=== PATIENT | male | born 1975 | race Caucasian/White ===

== ENCOUNTER 2017-03-28 06:58 | Outpatient (CLI) | payer MEDICAID ==
[~2017-03-28 06:58] MED LIST: FERRIC CARBOXYMALTOSE 750 MG in NORMAL SALINE 250 ML IV PRN; NORMAL SALINE 250 ML IV PRN
[2017-03-28 09:16] VITALS: BP 138/66
== END 2017-03-28 10:00 | disposition home or self-care (01) ==
LOC: II 06:58 → 5TH 07:34 → II 10:00
PROVIDERS: ATTEND Internal Medicine
PROC: 3E033GC Introduction of Other Therapeutic Substance into Peripheral Vein, Percutaneous Approach (ICD-10-PCS; principal; 2017-03-28)
DX: D50.9 Iron deficiency anemia, unspecified (principal); K90.9 Intestinal malabsorption, unspecified
CPT/HCPCS: 96365; J7050; J1439

== ENCOUNTER 2017-04-04 08:36 | Outpatient (CLI) | payer MEDICAID ==
[2017-04-04 09:26] VITALS: BP 147/93
== END 2017-04-04 10:18 | disposition home or self-care (01) ==
LOC: II 08:36 → 5TH 08:42 → II 10:18
PROVIDERS: ATTEND Internal Medicine
PROC: 3E033GC Introduction of Other Therapeutic Substance into Peripheral Vein, Percutaneous Approach (ICD-10-PCS; principal; 2017-04-04)
DX: D50.9 Iron deficiency anemia, unspecified (principal); K90.9 Intestinal malabsorption, unspecified
CPT/HCPCS: 96365; J7050; J1439

== ENCOUNTER 2017-09-24 08:20 | Outpatient (CLI) | payer MEDICAID ==
[2017-09-24 08:42] VITALS: BP 153/81
[2017-09-24] MEDS ORDERED: NORMAL SALINE 250 ML IV PRN (08:51)
[2017-09-24] MEDS ORDERED: FERRIC CARBOXYMALTOSE 750 MG in NORMAL SALINE 250 ML IV PRN (08:51)
== END 2017-09-24 10:09 | disposition home or self-care (01) ==
LOC: II 08:20 → 5TH 08:23 → II 10:09
PROVIDERS: ATTEND Internal Medicine
PROC: 3E033GC Introduction of Other Therapeutic Substance into Peripheral Vein, Percutaneous Approach (ICD-10-PCS; principal; 2017-09-24)
DX: D50.9 Iron deficiency anemia, unspecified (principal); K90.9 Intestinal malabsorption, unspecified
CPT/HCPCS: 96365; J7050; J1439

== ENCOUNTER 2017-10-01 07:15 | Outpatient (CLI) | payer MEDICAID ==
[2017-10-01 08:01] VITALS: BP 149/88
== END 2017-10-01 09:24 | disposition home or self-care (01) ==
LOC: II 07:15 → 5TH 07:22 → II 09:24
PROVIDERS: ATTEND Internal Medicine
PROC: 3E033GC Introduction of Other Therapeutic Substance into Peripheral Vein, Percutaneous Approach (ICD-10-PCS; principal; 2017-10-01)
DX: D50.9 Iron deficiency anemia, unspecified (principal); K90.9 Intestinal malabsorption, unspecified
CPT/HCPCS: 96365; J7050; J1439

== ENCOUNTER 2019-04-22 12:54 | Emergency (ER) | payer MEDICAID ==
--- NOTE | 2019-04-22 13:35 | ER Document Report ---
ED Medical Screen (RME) - General Chief Complaint: Abnormal Lab Results Stated Complaint: ABNORMAL LABS Time Seen by Provider: 04/22/19 13:31 Mode of Arrival: Wheelchair Information source: Patient, Parent Notes: Patient presents with a complaint of difficulty breathing for the past several days. Patient states he had outpatient lab work done yesterday with a hemoglobin of 4 and was advised to come here. Patient appears jaundiced in triage. Patient does have a history of hypertension, hyperlipidemia, DVT, PE. Patient does take Xarelto I have greeted and performed a rapid initial assessment of this patient. A comprehensive ED assessment and evaluation of the patient, analysis of test results and completion of the medical decision making process will be conducted by additional ED providers. TRAVEL OUTSIDE OF THE [place] IN LAST 30 DAYS: No - Related Data Allergies/Adverse Reactions: No Known Allergies Allergy (Verified 04/22/19 12:57) Past Medical History - Social History Frequency of alcohol use: None Drug Abuse: None - Past Medical History Cardiac Medical History: Reports: Hx Hypercholesterolemia, Hx Hypertension Denies: Hx Coronary Artery Disease, Hx Heart Attack Pulmonary Medical History: Denies: Hx Asthma, Hx Bronchitis, Hx COPD, Hx Pneumonia Neurological Medical History: Denies: Hx Cerebrovascular Accident, Hx Seizures Renal/ Medical History: Denies: Hx Peritoneal Dialysis GI Medical History: Reports: Hx Ulcer Musculoskeltal Medical History: Denies Hx Arthritis Psychiatric Medical History: Denies: Hx Depression Past Surgical History: Reports: Hx Myringotomy - Immunizations Immunizations up to date: Yes Hx Diphtheria, Pertussis, Tetanus Vaccination: Yes Physical Exam - Vital signs Vitals: Temp Pulse Resp BP Pulse Ox 98.6 F 100 20 160/79 H 96 04/22/19 13:00 04/22/19 13:00 04/22/19 13:00 04/22/19 13:00 04/22/19 13:00 - General General appearance: Alert Notes: Respirations unlabored, patient not tachycardic. Patient appears jaundiced. Course - Vital Signs Vital signs: Temp Pulse Resp BP Pulse Ox 98.6 F 100 20 160/79 H 96 04/22/19 13:00 04/22/19 13:00 04/22/19 13:00 04/22/19 13:00 04/22/19 13:00
--- NOTE | 2019-04-22 14:25 | RADIOLOGY REPORT (SQ) ---
EXAM DESCRIPTION: CHEST 2 VIEWS COMPLETED DATE/TIME: 04/22/2019 2:06 pm REASON FOR STUDY: diff breathing COMPARISON: 06/05/2016. EXAM PARAMETERS: NUMBER OF VIEWS: two views TECHNIQUE: Digital Frontal and Lateral radiographic views of the chest acquired. RADIATION DOSE: NA LIMITATIONS: none FINDINGS: LUNGS AND PLEURA: No opacities, masses or pneumothorax. No pleural effusion. MEDIASTINUM AND HILAR STRUCTURES: No masses or contour abnormalities. HEART AND VASCULAR STRUCTURES: Heart upper limits of normal size. No evidence for failure. BONES: No acute findings. HARDWARE: None in the chest. OTHER: Hiatal hernia. No other significant finding. IMPRESSION: NO ACUTE RADIOGRAPHIC FINDING IN THE CHEST. MILD CARDIOMEGALY. HIATAL HERNIA. TECHNICAL DOCUMENTATION: JOB ID: [id number] [employer]- All Rights Reserved Reading location - IP/workstation name: [email or web address]
[2019-04-22 14:39] LABS: ABSOLUTE EOSINOPHILS # (AUTO) 0.1 10^3/uL (0.0-0.6); ABSOLUTE LYMPHOCYTES (AUTO) 1.1 10^3/uL (0.5-4.7); ABSOLUTE MONOCYTES (AUTO) 0.4 10^3/uL (0.1-1.4); EOSINOPHILS % (AUTO) 1.9 % (0-6); HEMATOCRIT 15.3 % (37.9-51.0); MEAN CORPUSCULAR HEMOGLOBIN 13.7 pg (27.0-33.4); MEAN CORPUSCULAR HGB CONC 26.9 g/dL (32.0-36.0); MEAN CORPUSCULAR VOLUME 51 fl (80-97); MONOCYTES % (AUTO) 10.1 % (3-13); PLATELET COUNT 378 10^3/uL (150-450); RED CELL DISTRIBUTION WIDTH 20.6 % (11.5-14.0); TOTAL CELLS COUNTED % (AUTO) 100 %; WHITE BLOOD COUNT 3.5 10^3/uL (4.0-10.5)
[2019-04-22 14:41] LABS: INTERNATIONAL RATION (INR) 2.08; PROTHROMBIN TIME 23.8 SEC (11.4-15.4)
[2019-04-22 14:42] LABS: PARTIAL THROMBOPLASTIN TIME 30.3 SEC (23.5-35.8)
[2019-04-22 14:54] LABS: HEMOGLOBIN 4.1 g/dL (13.5-17.0)
[2019-04-22 14:56] LABS: ALANINE AMINOTRANSFERASE 25 U/L (21-72); ALKALINE PHOSPHATASE 74 U/L (38-126); ANION GAP 11 (5-19); ASPARTATE AMINO TRANSFERASE 20 U/L (17-59); BILIRUBIN,DIRECT 0.1 mg/dL (0.0-0.4); BILIRUBIN,TOTAL 0.4 mg/dL (0.2-1.3); BLOOD UREA NITROGEN 14 mg/dL (7-20); CARBON DIOXIDE 23 mmol/L (22-30); CHLORIDE 105 mmol/L (98-107); GLUCOSE 102 mg/dL (75-110); LIPASE 93.1 U/L (23-300); POTASSIUM 4.2 mmol/L (3.6-5.0); TOTAL PROTEIN 7.2 g/dL (6.3-8.2)
[2019-04-22] MEDS ORDERED: FUROSEMIDE INJ/PF 20 MG/2 ML SDV IV PRN (15:05)
[2019-04-22] MEDS ORDERED: DIPHENHYDRAMINE HCL 25 MG CAPSULE PO PRN (15:05)
[2019-04-22] MEDS ORDERED: ACETAMINOPHEN 325 MG TABLET PO PRN (15:05)
[2019-04-22] MEDS ORDERED: NORMAL SALINE 250 ML IV PRN ×2 (15:05)
[2019-04-22 15:15] LABS: ANISOCYTOSIS 2+; HYPOCHROMASIA 3+; OVALOCYTES SLIGHT; POIKILOCYTOSIS SLIGHT; POLYCHROMASIA SLIGHT; TEAR DROP CELLS SLIGHT
[2019-04-22 15:16] LABS: PLATELET COMMENT ADEQUATE
--- NOTE | 2019-04-22 15:55 | ER Document Report ---
ED General - General Chief Complaint: Abnormal Lab Results Stated Complaint: ABNORMAL LABS Time Seen by Provider: 04/22/19 13:31 Primary Care Provider: ELIUD DAVID MD [Primary Care Provider] - Follow up as needed Mode of Arrival: Wheelchair Information source: Patient, Relative Cannot obtain history due to: Mentally challenged Notes: 43-year-old male with developmental delay, hypertension, hyperlipidemia, iron deficiency anemia, previous cardiac thrombus, previous DVT with IVC filter who is currently on Xarelto presents after his primary care physician called him with recent blood work results which reported a hemoglobin of 4. Patient states that he has been short of breath recently but denies any dizziness, lightheadedness, chest pain, abdominal pain, nausea, vomiting black or bloody stools. He does report a "bleeding ulcer" but cannot tell me where this ulcer was. Mother is at the bedside and provides the majority of the history. 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 TRAVEL OUTSIDE OF THE [place] IN LAST 30 DAYS: No - HPI Onset: Other Quality of pain: No pain Severity: None Pain Level: Denies Associated symptoms: Shortness of breath. denies: Chest pain, Leg swelling, Nausea, Vomiting Exacerbated by: Movement, Walking Relieved by: Remaining still Similar symptoms previously: Yes Recently seen / treated by doctor: Yes - Related Data Allergies/Adverse Reactions: No Known Allergies Allergy (Verified 04/22/19 12:57) Past Medical History - General Information source: Patient, Parent Cannot obtain history due to: Mentally challenged - Social History Smoking Status: Never Smoker Frequency of alcohol use: None Drug Abuse: None Lives with: Family Family History: Arthritis, CAD, CVA, DM, Hyperlipidemia, Hypertension, Malignancy, Thyroid Disfunction Patient has suicidal ideation: No Patient has homicidal ideation: No - Past Medical History Cardiac Medical History: Reports: Hx Hypercholesterolemia, Hx Hypertension Denies: Hx Coronary Artery Disease, Hx Heart Attack Pulmonary Medical History: Denies: Hx Asthma, Hx Bronchitis, Hx COPD, Hx Pneumonia Neurological Medical History: Denies: Hx Cerebrovascular Accident, Hx Seizures Renal/ Medical History: Denies: Hx Peritoneal Dialysis GI Medical History: Reports: Hx Ulcer Musculoskeletal Medical History: Denies Hx Arthritis Psychiatric Medical History: Denies: Hx Depression Past Surgical History: Reports: Hx Myringotomy - Immunizations Immunizations up to date: Yes Hx Diphtheria, Pertussis, Tetanus Vaccination: Yes Review of Systems - Review of Systems Notes: REVIEW OF SYSTEMS: CONSTITUTIONAL : Denies fever, chills, or sweats. Denies recent illness. Denies weight loss, recent hospitalizations. EENT: Denies visual changes, eye pain. Denies sore throat, oral lesions, difficulty swallowing. CARDIOVASCULAR: Denies chest pain. Denies palpitations. Denies lower extremity edema. RESPIRATORY: Denies cough. Denies wheezing. GASTROINTESTINAL: Denies abdominal pain or distention. Denies nausea, vomiting, or diarrhea. Denies blood in vomitus, stools, or per rectum. Denies black, tarry stools. Denies constipation. GENITOURINARY: Denies difficulty urinating, painful urination, frequency, blood in urine, testicular pain or penile discharge. MUSCULOSKELETAL: Denies back or neck pain or stiffness. Denies joint pain or swelling. SKIN: Denies rash, lesions or sores. HEMATOLOGIC : Denies easy bruising or bleeding. LYMPHATIC: Denies swollen glands. NEUROLOGICAL: Denies confusion or altered mental status. Denies loss of consciousness. Denies dizziness or lightheadedness. Denies headache. Denies weakness or paralysis. Denies problems difficulty with ambulation, slurred speech. Denies sensory loss, numbness, or tingling. Denies seizures. PSYCHIATRIC: Denies anxiety or stress. Denies depression, suicidal ideation, or Physical Exam - Vital signs Vitals: Temp Pulse Resp BP Pulse Ox 98.6 F 100 20 160/79 H 96 04/22/19 13:00 04/22/19 13:00 04/22/19 13:00 04/22/19 13:00 04/22/19 13:00 - Notes Notes: PHYSICAL EXAMINATION: GENERAL: Well-appearing, well-nourished and in no acute distress. HEAD: Atraumatic, normocephalic. EYES: Pupils equal round and reactive to light, extraocular movements intact, sclera anicteric, pale conjunctive ENT: Nares patent, oropharynx clear without exudates. Moist mucous membranes. NECK: Normal range of motion, supple without lymphadenopathy LUNGS: Breath sounds clear to auscultation bilaterally and equal. No wheezes rales or rhonchi. HEART: Regular rate and rhythm without murmurs ABDOMEN: Soft, nontender, nondistended abdomen. No guarding, no rebound. No masses appreciated. Musculoskeletal: Normal range of motion, no pitting or edema. No cyanosis. NEUROLOGICAL: Cranial nerves grossly intact. Normal speech, normal gait. Normal sensory, motor exams PSYCH: Normal mood, normal affect. SKIN: Pallor Course - Re-evaluation Re-evalutation: Laboratory 04/22/19 04/22/19 04/22/19 14:15 14:15 14:15 WBC 3.5 L RBC 3.00 L Hgb 4.1 L* Hct 15.3 L MCV 51 L MCH 13.7 L MCHC 26.9 L RDW 20.6 H Plt Count 378 Seg Neutrophils % 56.0 Lymphocytes % 31.0 Monocytes % 10.1 Eosinophils % 1.9 Basophils % 1.0 Absolute Neutrophils 2.0 Absolute Lymphocytes 1.1 Absolute Monocytes 0.4 Absolute Eosinophils 0.1 Absolute Basophils 0.0 Platelet Comment ADEQUATE Polychromasia SLIGHT Hypochromasia 3+ Poikilocytosis SLIGHT Anisocytosis 2+ Microcytosis 4+ Tear Drop Cells SLIGHT Ovalocytes SLIGHT PT 23.8 H INR 2.08 APTT 30.3 Sodium 139.0 Potassium 4.2 Chloride 105 Carbon Dioxide 23 Anion Gap 11 BUN 14 Creatinine 0.68 Est GFR ( Amer) > 60 Est GFR (Non-Af Amer) > 60 Glucose 102 Calcium 9.0 Total Bilirubin 0.4 Direct Bilirubin 0.1 Neonat Total Bilirubin Not Reportable Neonat Direct Bilirubin Not Reportable Neonat Indirect Bili Not Reportable AST 20 ALT 25 Alkaline Phosphatase 74 Troponin I Total Protein 7.2 Albumin 4.0 Lipase 93.1 POC Stool Occult Blood Blood Type Antibody Screen Crossmatch 04/22/19 04/22/19 04/22/19 14:15 14:15 14:57 WBC RBC Hgb Hct MCV MCH MCHC RDW Plt Count Seg Neutrophils % Lymphocytes % Monocytes % Eosinophils % Basophils % Absolute Neutrophils Absolute Lymphocytes Absolute Monocytes Absolute Eosinophils Absolute Basophils Platelet Comment Polychromasia Hypochromasia Poikilocytosis Anisocytosis Microcytosis Tear Drop Cells Ovalocytes PT INR APTT Sodium Potassium Chloride Carbon Dioxide Anion Gap BUN Creatinine Est GFR ( Amer) Est GFR (Non-Af Amer) Glucose Calcium Total Bilirubin Direct Bilirubin Neonat Total Bilirubin Neonat Direct Bilirubin Neonat Indirect Bili AST ALT Alkaline Phosphatase Troponin I < 0.012 Total Protein Albumin Lipase POC Stool Occult Blood POSITIVE Blood Type A POSITIVE Antibody Screen NEGATIVE Crossmatch See Detail Chest X-Ray 04/22/19 13:33 IMPRESSION: NO ACUTE RADIOGRAPHIC FINDING IN THE CHEST. MILD CARDIOMEGALY. HIATAL HERNIA. Temp Pulse Resp BP Pulse Ox 98.1 F 95 21 H 187/83 H 98 04/22/19 16:10 04/22/19 16:10 04/22/19 16:10 04/22/19 16:10 04/22/19 16:10 43-year-old male presented with a hemoglobin of 4.1. This was found after recent blood work by his new PCP. Patient reports history of iron deficiency anemia and previous multiple transfusions but states that he has not required a transfusion in many years. Vital signs reviewed and patient is mildly tachycardic initially with a heart rate of 100 but hypertensive and not hypoxic. Patient is pale but does not appear toxic or dehydrated. He otherwise has a normal physical exam except for dark stool that is Hemoccult positive. Patient is receiving 2 units of PRBCs, Protonix, and awaiting transfer to [facility] where the accepting physician is Dr. Tate. Patient will be going to the PCU. 04/22/19 15:54 Patient found to have a hemoglobin of 4.1 and occult positive stool. Patient is currently on Xarelto for cardiac stents. Mother initially requested transfer to [facility] as we do not have gastroenterology but I was informed that they have an almost 1 week waiting list. I am awaiting callback from the mother to see if I have her permission to try to transfer the patient to a another tertiary center. That has gastroenterology. 04/22/19 15:59 Blood transfusion started. Mother has given permission to transfer the patient to [place]. 04/22/19 16:02 [facility] has been contacted for transfer. They do also advised me that they have a long wait list. Patient accepted for transfer by Dr. Tate 04/22/19 17:21 Patient reevaluated upon transfer team arrival. Vital signs stable. Mother at the bedside. 04/22/19 19:07 - Vital Signs Vital signs: Temp Pulse Resp BP Pulse Ox 98.4 F 94 22 H 156/84 H 98 04/22/19 18:34 04/22/19 18:34 04/22/19 18:34 04/22/19 18:34 04/22/19 18:34 - Laboratory Result Diagrams: 04/22/19 14:15 04/22/19 14:15 Laboratory results interpreted by me: 04/22/19 04/22/19 04/22/19 14:15 14:15 14:15 WBC 3.5 L RBC 3.00 L Hgb 4.1 L* Hct 15.3 L MCV 51 L MCH 13.7 L MCHC 26.9 L RDW 20.6 H PT 23.8 H Crossmatch See Detail Critical Care Note - Critical Care Note Total time excluding time spent on procedures (mins): 45 - Minutes of critical care time spent in direct contact evaluating and reevaluating the patient, treating symptoms, reviewing labs and studies and speaking with family and consultants excluding any procedures Discharge - Discharge Clinical Impression: History of gastric ulcer, History of pulmonary embolism, S/P insertion of inferior vena caval filter, hist atrial thrombus, History of DVT (deep vein thrombosis) Anemia Qualifiers: Anemia type: iron deficiency Iron deficiency anemia type: other iron deficiency Qualified Code(s): D50.8 - Other iron deficiency anemias GI bleed Qualifiers: GI bleed type/associated pathology: unspecified gastrointestinal hemorrhage type Qualified Code(s): K92.2 - Gastrointestinal hemorrhage, unspecified Condition: Stable Disposition: [facility] Referrals: ELIUD DAVID MD [Primary Care Provider] - Follow up as needed
[2019-04-22] MEDS ORDERED: PANTOPRAZOLE SODIUM 40 MG VIAL IV ONE (16:17)
[2019-04-22] MEDS ORDERED: PANTOPRAZOLE SODIUM 40 MG VIAL IV PRN (16:18)
[2019-04-22 20:47] VITALS: BP 159/82
--- NOTE | 2019-04-22 22:04 | EKG REPORT ---
SEVERITY:- OTHERWISE NORMAL ECG - INCOMPLETE ANALYSIS DUE TO MISSING DATA IN PRECORDIAL LEAD(S) SINUS RHYTHM ATRIAL PREMATURE COMPLEX : Confirmed by: Rosalinda Iniguez 22-Apr-2019 22:03:26
[2019-04-23 11:42] LABS: PATH REVIEW PATHOLOGIST REVIEWED
--- NOTE | 2019-04-23 23:07 | EKG REPORT ---
SEVERITY:- NORMAL ECG - SINUS RHYTHM : Confirmed by: Rosalinda Iniguez 23-Apr-2019 23:06:58
== END 2019-04-22 19:30 | disposition short-term general hospital (02) ==
LOC: ER 12:54
DX: D50.9 Iron deficiency anemia, unspecified (principal); K92.2 Gastrointestinal hemorrhage, unspecified; I11.0 Hypertensive heart disease with heart failure; K44.9 Diaphragmatic hernia without obstruction or gangrene; R06.02 Shortness of breath; R00.0 Tachycardia, unspecified; Z86.718 Personal history of other venous thrombosis and embolism; Z86.711 Personal history of pulmonary embolism; Z95.828 Presence of other vascular implants and grafts; Z95.5 Presence of coronary angioplasty implant and graft; Z79.02 Long term (current) use of antithrombotics/antiplatelets; Z87.11 Personal history of peptic ulcer disease
CPT/HCPCS: 93005 ×2; 99291; 96374; 86900; 86901; 36415; 36430; 86850; 83690; 85025; 85610; 85730; 80053; 84484; 86920; 71046; 93010 ×2; P9016; S0164

== ENCOUNTER 2019-04-30 12:17 | Inpatient (IN) | payer MEDICAID ==
--- NOTE | 2019-04-30 12:48 | ER Document Report ---
ED Medical Screen (RME) - General Chief Complaint: Weakness Stated Complaint: DIFFICLTY BREATHING Time Seen by Provider: 04/30/19 12:42 Primary Care Provider: ELIUD DAVID MD [Primary Care Provider] - Follow up as needed Mode of Arrival: Wheelchair Information source: Patient Notes: 43-year-old male presented to ED for complaint of right flank pain for the past 2 days. He states that he came to the emergency room a week ago Saturday and he had a lower GI bleed he got 2 units of blood here and then went to [place] and got 3 more units and he had a upper and lower endoscopy done. He states they took him off of his blood thinners last week and he was supposed to restart them on the second but he has not restarted them yet. He does have a history of blood clots as well as GI bleed. He states he is feeling very tired and weak and needs to be evaluated. He states he went to the doctor on the second at [place] and they told him that he was supposed to start his blood thinner but he still has not. I have greeted and performed a rapid initial assessment of this patient. A comprehensive ED assessment and evaluation of the patient, analysis of test results and completion of medical decision making process will be conducted by an additional ED providers. Dictation of this chart was performed using voice recognition software; therefor e, there may be some unintended grammatical errors. TRAVEL OUTSIDE OF THE [place] IN LAST 30 DAYS: No - Related Data Allergies/Adverse Reactions: No Known Allergies Allergy (Verified 04/30/19 12:23) Past Medical History - Past Medical History Cardiac Medical History: Reports: Hx Hypercholesterolemia, Hx Hypertension Denies: Hx Coronary Artery Disease, Hx Heart Attack Pulmonary Medical History: Denies: Hx Asthma, Hx Bronchitis, Hx COPD, Hx Pneumonia Neurological Medical History: Denies: Hx Cerebrovascular Accident, Hx Seizures Renal/ Medical History: Denies: Hx Peritoneal Dialysis GI Medical History: Reports: Hx Ulcer Musculoskeltal Medical History: Denies Hx Arthritis Psychiatric Medical History: Denies: Hx Depression Past Surgical History: Reports: Hx Myringotomy - Immunizations Immunizations up to date: Yes Hx Diphtheria, Pertussis, Tetanus Vaccination: Yes Physical Exam - Vital signs Vitals: Temp Pulse Resp BP Pulse Ox 98.7 F 100 18 151/91 H 97 04/30/19 12:29 04/30/19 12:29 04/30/19 12:29 04/30/19 12:29 04/30/19 12:29 Course - Vital Signs Vital signs: Temp Pulse Resp BP Pulse Ox 98.7 F 100 18 151/91 H 97 04/30/19 12:29 04/30/19 12:29 04/30/19 12:29 04/30/19 12:29 04/30/19 12:29 Doctor's Discharge - Discharge Referrals: ELIUD DAVID MD [Primary Care Provider] - Follow up as needed
[2019-04-30 13:35] LABS: ABSOLUTE EOSINOPHILS # (AUTO) 0.1 10^3/uL (0.0-0.6); ABSOLUTE MONOCYTES (AUTO) 0.9 10^3/uL (0.1-1.4); ABSOLUTE NEUT (AUTO) 5.6 10^3/uL (1.7-8.2); BASOPHILS % (AUTO) 0.5 % (0-2); HEMATOCRIT 29.2 % (37.9-51.0); HEMOGLOBIN 8.8 g/dL (13.5-17.0); LYMPHOCYTES % (AUTO) 12.9 % (13-45); MEAN CORPUSCULAR HEMOGLOBIN 18.7 pg (27.0-33.4); MEAN CORPUSCULAR HGB CONC 30.1 g/dL (32.0-36.0); RED CELL DISTRIBUTION WIDTH 35.3 % (11.5-14.0); SEGMENTED NEUTROPHILS % (AUTO) 73.6 % (42-78); TOTAL CELLS COUNTED % (AUTO) 100 %; WHITE BLOOD COUNT 7.5 10^3/uL (4.0-10.5)
[2019-04-30 13:45] LABS: MEAN CORPUSCULAR VOLUME 62 fl (80-97)
[2019-04-30 13:47] LABS: INTERNATIONAL RATION (INR) 1.17
[2019-04-30 13:48] LABS: APPEARANCE,URINE SLIGHTLY-CLOUDY; BILIRUBIN,URINE NEGATIVE (NEGATIVE); COLOR,URINE AMBER; GLUCOSE, URINE NEGATIVE (NEGATIVE); KETONES,URINE NEGATIVE (NEGATIVE); LEUKOCYTE ESTERASE,URINE NEGATIVE (NEGATIVE); NITRITE,URINE NEGATIVE (NEGATIVE); PROTEIN,URINE 100 mg/dL (NEGATIVE); URINE SPECIFIC GRAVITY 1.032
--- NOTE | 2019-04-30 13:48 | RADIOLOGY REPORT (SQ) ---
EXAM DESCRIPTION: CHEST 2 VIEWS COMPLETED DATE/TIME: 04/30/2019 1:37 pm REASON FOR STUDY: right fflank pain pain with breathing COMPARISON: Two-view chest 04/22/2019 AP chest 06/05/2016 CT angio chest 03/15/2015 EXAM PARAMETERS: NUMBER OF VIEWS: two views TECHNIQUE: Digital Frontal and Lateral radiographic views of the chest acquired. RADIATION DOSE: NA LIMITATIONS: none FINDINGS: LUNGS AND PLEURA: Minimal bibasilar atelectasis. No pulmonary edema or pleural effusions. No pneumothorax MEDIASTINUM AND HILAR STRUCTURES: Large retrocardiac hiatal hernia containing nearly the entire stoma ch HEART AND VASCULAR STRUCTURES: Stable mild cardiomegaly BONES: No acute findings. HARDWARE: None in the chest. OTHER: No other significant finding. IMPRESSION: Minimal bibasilar atelectasis Large retrocardiac hiatal hernia containing nearly the entire stomach Stable cardiomegaly TECHNICAL DOCUMENTATION: JOB ID: [id number] [employer]- All Rights Reserved Reading location - IP/workstation name: [email or web address]
[2019-04-30 13:53] LABS: HYPOCHROMASIA 3+; POLYCHROMASIA SLIGHT
[2019-04-30 13:54] LABS: ANISOCYTOSIS 4+; OVALOCYTES SLIGHT; PLATELET CLUMPS PRESENT; POIKILOCYTOSIS 1+; SCHISTOCYTES SLIGHT; TEAR DROP CELLS 1+
[2019-04-30 13:56] LABS: PLATELET COMMENT ADEQUATE; PLATELET COUNT 333 10^3/uL (150-450)
[2019-04-30 14:00] LABS: ALANINE AMINOTRANSFERASE 21 U/L (21-72); ALBUMIN 4.1 g/dL (3.5-5.0); ALKALINE PHOSPHATASE 66 U/L (38-126); ANION GAP 10 (5-19); ASPARTATE AMINO TRANSFERASE 13 U/L (17-59); BILIRUBIN,DIRECT 0.1 mg/dL (0.0-0.4); BILIRUBIN,TOTAL 0.7 mg/dL (0.2-1.3); BLOOD UREA NITROGEN 13 mg/dL (7-20); CALCIUM 9.4 mg/dL (8.4-10.2); CARBON DIOXIDE 30 mmol/L (22-30); CHLORIDE 100 mmol/L (98-107); GLUCOSE 112 mg/dL (75-110); LIPASE 48.7 U/L (23-300); POTASSIUM 4.3 mmol/L (3.6-5.0); SODIUM 140.4 mmol/L (137-145); TOTAL PROTEIN 7.8 g/dL (6.3-8.2)
[2019-04-30] MEDS ORDERED: FENTANYL CITRATE INJ/PF 100 MCG/2 ML AMPUL IV ONE (14:55)
--- NOTE | 2019-04-30 14:55 | ER Document Report ---
ED General - General Chief Complaint: Weakness Stated Complaint: DIFFICLTY BREATHING Time Seen by Provider: 04/30/19 12:42 Mode of Arrival: Wheelchair Notes: Patient is a 43-year-old male who presents the emergency department with a chief complaint of shortness of breath and right upper abdominal pain. Pain is also i n his right lower chest. Patient has a significant past medical history of a DVT with an IVC filter, [place] with stent placement, GI bleed, and hyperlipidemia. On 25 April he was transferred to [facility] for a lower GI bleed and they cauterized a vein that was bleeding. At that time his hemoglobin was 4 and he received a total of 5 units of PRBCs. Patient does have shortness of breath and is tachycardic in the low 100s. He was seen by his primary care provider, who instructed him to restart his Xarelto on Saturday, but he did not. TRAVEL OUTSIDE OF THE [place] IN LAST 30 DAYS: No - Related Data Allergies/Adverse Reactions: No Known Allergies Allergy (Verified 04/30/19 12:23) Past Medical History - General Information source: Patient - Social History Smoking Status: Never Smoker Chew tobacco use (# tins/day): No Frequency of alcohol use: None Drug Abuse: None Family History: Arthritis, CAD, CVA, DM, Hyperlipidemia, Hypertension, Malignancy, Thyroid Disfunction Patient has suicidal ideation: No Patient has homicidal ideation: No - Past Medical History Cardiac Medical History: Reports: Hx Hypercholesterolemia, Hx Hypertension Denies: Hx Coronary Artery Disease, Hx Heart Attack Pulmonary Medical History: Denies: Hx Asthma, Hx Bronchitis, Hx COPD, Hx Pneumonia Neurological Medical History: Denies: Hx Cerebrovascular Accident, Hx Seizures Renal/ Medical History: Denies: Hx Peritoneal Dialysis GI Medical History: Reports: Hx Ulcer Musculoskeletal Medical History: Denies Hx Arthritis Psychiatric Medical History: Denies: Hx Depression Past Surgical History: Reports: Hx Myringotomy - Immunizations Immunizations up to date: Yes Hx Diphtheria, Pertussis, Tetanus Vaccination: Yes Review of Systems - Review of Systems Notes: REVIEW OF SYSTEMS: CONSTITUTIONAL : Denies recent illness. Denies recent unintentional weight loss. Denies fever, chills, or sweats. EENT: Denies eye, ear, throat, or mouth pain, discharge, or symptoms. Denies nasal or sinus congestion. CARDIOVASCULAR: Denies chest pain. RESPIRATORY: See HPI. GASTROINTESTINAL: See HPI GENITOURINARY: Denies difficulty urinating, burning, blood in urine, urgency or frequency. MUSCULOSKELETAL: Denies neck and back pain. Denies joint pain or swelling. SKIN: Denies rash, itchiness, or lesions HEMATOLOGIC : Denies easy bruising or bleeding. LYMPHATIC: Denies swollen, painful, enlarged glands. NEUROLOGICAL: Denies no numbness or tingling denies weakness. Denies headache. Denies altered mental status. Denies alteration in speech. PSYCHIATRIC: Denies stress, anxiety, alteration in sleep patterns, or depression. All other systems reviewed and negative. Physical Exam - Vital signs Vitals: Temp Pulse Resp BP Pulse Ox 98.7 F 100 18 151/91 H 97 04/30/19 12:29 04/30/19 12:29 04/30/19 12:29 04/30/19 12:29 04/30/19 12:29 - Notes Notes: PHYSICAL EXAMINATION: GENERAL: Appears obese, well-nourished, tachypneic. HEAD: Normocephalic, atraumatic. EYES: PERRL, conjunctiva normal, all extraocular movements intact, sclera nonicteric ENT: Moist mucous membranes. NECK: Supple, no noticeable swelling, redness, rash. Normal range of motion. LUNGS: Diminished right lower lobe. No wheezes rales or rhonchi. CARDIOVASCULAR: S1-S2, tachycardic, regular rhythm. Radial pulses 2+, normal. ABDOMEN: Normoactive bowel sounds. Soft, tender right upper abdomen, no guarding, no rebound tenderness, and no masses palpated. EXTREMITIES: Normal strength and range of motion, no pitting or edema. No cyanosis. NEUROLOGICAL: Moves all extremities upon command. Strength 5/5 in all extremities. PSYCH: Normal mood, normal affect. SKIN: Warm, dry. No rash, lesions, ulcerations noted. Normal skin turgor. Course - Re-evaluation Re-evalutation: 04/30/19 15:30 04/30/[address] of the chest shows there is no pulmonary emboli at this time. He does have a right pleural effusion, consistent with his pain that he is having. He is still tachycardic. We will ambulate the patient with continuous pulse ox. 04/30/19 18:14 Patient was walked around the unit and his heart rate was 127 while ambulating. 04/30/19 18:[address] Clark, at this time, hospitalist team is in transition to car shifter. Will attempt to call Dr. Calvert on car shifter. 04/30/19 21:[address] Calvert. Phone was busy. Will await callback. 04/30/19 21:[address] Calvert, the hospitalist and he would like an ABG drawn at this time. 04/30/19 22:06 Patient's PaO2 is 69.8. I attempted to call Dr. Calvert. Will await callback. 04/30/19 22:[address] Calvert and the patient will be admitted for observation. - Vital Signs Vital signs: Temp Pulse Resp BP Pulse Ox 100.5 F H 104 H 22 H 157/84 H 96 05/01/19 00:29 05/01/19 02:00 05/01/19 00:29 05/01/19 00:29 05/01/19 00:29 - Laboratory Result Diagrams: 04/30/19 13:13 04/30/19 13:13 Laboratory results interpreted by me: 04/30/19 04/30/19 04/30/19 13:13 13:13 13:13 Hgb 8.8 L Hct 29.2 L MCV 62 L D MCH 18.7 L MCHC 30.1 L RDW 35.3 H Lymphocytes % 12.9 L ABG pO2 ABG HCO3 Glucose 112 H Iron Ferritin AST 13 L Vitamin B12 Urine Protein 100 H Urine Urobilinogen 4.0 H 04/30/19 04/30/19 13:13 21:47 Hgb Hct MCV MCH MCHC RDW Lymphocytes % ABG pO2 69.8 L ABG HCO3 25.0 H Glucose Iron 11.9 L Ferritin 12.70 L AST Vitamin B12 229.0 L Urine Protein Urine Urobilinogen Discharge - Discharge Clinical Impression: Shortness of breath, Pleural effusion, Right upper quadrant abdominal pain Condition: Stable Disposition: ADMITTED OBSERVATION Admitting Provider: Enrike (Hospitalist) Unit Admitted: Telemetry
--- NOTE | 2019-04-30 15:42 | RADIOLOGY REPORT (SQ) ---
EXAM DESCRIPTION: U/S ABDOMEN LIMITED W/O DOP COMPLETED DATE/TIME: 04/30/2019 3:34 pm REASON FOR STUDY: RUQ abd pain COMPARISON: None. TECHNIQUE: Dynamic and static grayscale images acquired of the abdomen and recorded on PACS. Additio yves selected color Doppler and spectral images recorded. LIMITATIONS: None. FINDINGS: PANCREAS: Poorly seen. LIVER: No masses. Echotexture normal. LIVER VASCULATURE: Normal directional flow of the main portal vein and hepatic veins. GALLBLADDER: No stones. Normal wall thickness. No pericholecystic fluid. ULTRASOUND-DETECTED FLOOD'S SIGN: Negative. INTRAHEPATIC DUCTS AND COMMON DUCT: CBD and intrahepatic ducts normal caliber. No filling defects. INFERIOR VENA CAVA: Normal flow. AORTA: Poorly seen. RIGHT KIDNEY: Normal size, 12.2 cm. Normal echogenicity. No solid or suspicious masses. No hydroneph rosis. No calcifications. PERITONEAL AND RIGHT PLEURAL SPACE: No ascites or effusions. OTHER: No other significant findings. IMPRESSION: NORMAL RIGHT UPPER QUADRANT ULTRASOUND. TECHNICAL DOCUMENTATION: JOB ID: [id number] [employer]- All Rights Reserved Reading location - IP/workstation name: [email or web address]
--- NOTE | 2019-04-30 16:42 | RADIOLOGY REPORT (SQ) ---
EXAM DESCRIPTION: CTA CHEST COMPLETED DATE/TIME: 04/30/2019 4:28 pm REASON FOR STUDY: shortness of breath COMPARISON: None. TECHNIQUE: CT scan of the chest performed using helical scanning technique with dynamic intravenous contrast injection. Images reviewed with lung, soft tissue and bone windows. Reconstructed coronal and sagittal MPR images reviewed. Additional 3 dimensional post-processing performed to develop Maximal Intensity Projection images (IN P). All images stored on PACS. All CT scanners at this facility use dose modulation, iterative reconstruction, and/or weight based d osing when appropriate to reduce radiation dose to as low as reasonably achievable (ALARA). [facility]: Dose Right [facility]: CareDose [facility]: Dose Right [facility]: Teradose 4D [facility]: [employer] CONTRAST TYPE AND DOSE: Contrast type and dose not recorded here. Refer to pathology laboratory technologist's notes. Contrast bolus adequate for pulmonary arteries and aorta. RENAL FUNCTION: BUN 13 creatinine 0.67 RADIATION DOSE: CT Rad equipment meets quality standard of care and radiation dose reduction techniq ues were employed. CTDIvol: 50.1 - 73.8 mGy. DLP: 2053 mGy-cm. . LIMITATIONS: None. FINDINGS: LUNGS AND PLEURA: Small right pleural effusion. Ill-defined opacification in the right lo wer lobe. AORTA AND GREAT VESSELS: No aneurysm. Contrast bolus not optimized for the aorta. HEART: No pericardial effusion. No significant coronary artery calcifications. PULMONARY ARTERIES: No emboli visualized in the main pulmonary arteries or the segmental branches. HILAR AND MEDIASTINAL STRUCTURES: Hiatal hernia. No mediastinal or hilar mass. HARDWARE: None in the chest. UPPER ABDOMEN: No significant findings. Limited exam. THYROID AND OTHER SOFT TISSUES: No masses. No adenopathy. BONES: No acute or significant finding. 3D MIPS: Confirm above findings. OTHER: No other significant finding. IMPRESSION: There is no evidence of pulmonary embolus. There is no aortic aneurysm or dissection. Right pleural effusion. Cannot exclude right lower lobe pneumonia. Hiatal hernia. COMMENT: Quality ID # [id number]: Final reports with documentation of one or more dose reduction techniques (e.g., Automated exposure control, adjustment of the mA and/or kV according to patient size, use of iterative reconstruction technique) TECHNICAL DOCUMENTATION: JOB ID: [id number] [employer]- All Rights Reserved Reading location - IP/workstation name: [email or web address]
[2019-04-30] MEDS ORDERED: NORMAL SALINE 1000 ML 1,000 ML IV ONE (18:20)
[2019-04-30] MEDS ORDERED: LEVOFLOXACIN 750 MG/D5W RTU 750 MG/150 ML RTUPB IV ONE (18:36)
[2019-04-30 22:00] LABS: ARTERIAL BLOOD H2CO3 1.12 mmol/L (1.05-1.35); ARTERIAL BLOOD O2 SATURATION 94.8 % (94-98); ARTERIAL BLOOD PCO2 37.1 mmHg (35-45); ARTERIAL BLOOD PH 7.45 (7.35-7.45); ARTERIAL BLOOD PO2 69.8 mmHg (80-100); ARTERIAL BLOOD TOTAL CO2 26.1 mmol/L (23-27)
[2019-04-30 22:01] LABS: ARTERIAL BLOOD FIO2 ROOM AIR
[2019-04-30] MEDS ORDERED: HYDRALAZINE HCL INJ/PF 20 MG/1 ML SDV IV ONE (22:14)
[2019-04-30] MEDS ORDERED: IPRATROPIUM/ALBUTEROL 0.5-2.5 MG/3 ML AMPUL NEB PRN (22:16)
[2019-04-30] MEDS ORDERED: VANCOMYCIN HCL 0 MG in DEXTROSE 5%-WATER 250 ML IV NR (22:30)
[2019-04-30] MEDS ORDERED: VANCOMYCIN HCL INJ 1000 MG VIAL IV PRN (22:32)
[2019-04-30 22:52] LABS: ABSOLUTE RETICS # 0.102 10^6/uL (0.028-0.122); RETICULOCYTE COUNT (AUTO) 2.17 % (0.66-2.85)
[2019-04-30 22:53] LABS: IRON(TIBC) 11.9 ug/dL (49-181)
[2019-04-30] MEDS ORDERED: FLUTICASONE NASAL SPRAY 50 MCG/SPRY 120 SPRAY/16 GM NASL ONE (23:00)
[2019-04-30] MEDS ORDERED: VANCOMYCIN HCL 1,500 MG in DEXTROSE 5%-WATER 250 ML IV ONE (23:00)
[2019-04-30] MEDS ORDERED: OXYCODONE-ACETAMINOPHEN 5-325 MG TABLET PO ONE (23:38)
[2019-04-30] MEDS: CHLORPHENIRAMINE MALEATE 4 MG TABLET PO SCH (23:44)
[2019-04-30] MEDS: IPRATROPIUM/ALBUTEROL 0.5-2.5 MG/3 ML AMPUL NEB SCH (23:45)
[2019-05-01] MEDS: HYDRALAZINE HCL INJ/PF 20 MG/1 ML SDV IV PRN (03:54)
[2019-05-01] MEDS: ACETAMINOPHEN 325 MG TABLET PO PRN (03:56)
--- NOTE | 2019-05-01 04:18 | PDOC H&P ---
History of Present Illness Admission Date/PCP: 04/30/19 22:36 ELIUD DAVID MD Patient complains of: Shortness of breath History of Present Illness: LANCE PRIETO JR is a 43 year old male with a past medical history of developmental delay with speech impediment, both B12 and iron deficient anemia, followed by extensive lower extremity DVT and PE, on Xarelto, recent lower GI bleed status post embolization 10 days ago. Patient was discharged from [facility] for GI bleed and been doing well until 3 days ago developing shortness of breath nonproductive cough subjective fever prompting evaluation emergency room where he is found to have a right-sided infiltrate with small pleural effusion, hemoglobin of 8.8 from 7.5, 10 days ago. He denies nausea vomiting red or black discolored stool. He is started on empiric antibiotics and referred to the hospitalist for admission. Patient's mother, is at bedside who is able to provide details. Past Medical History Cardiac Medical History: Reports: Hyperlipidema, Hypertension, Pulmonary Embolism Denies: Coronary Artery Disease, Myocardial Infarction Pulmonary Medical History: Denies: Asthma, Bronchitis, Chronic Obstructive Pulmonary Disease (COPD), Pneumonia Neurological Medical History: Denies: Seizures Endocrine Medical History: Reports: Obesity GI Medical History: Reports: Other - Lower GI bleed Musculoskeltal Medical History: Denies: Arthritis Psychiatric Medical History: Denies: Alcohol Dependency, Depression, Tobacco Dependency Hematology: Reports: Anemia - CURRENTLY Social History Information Source: Patient, Parent, Emergency Med Personnel, [facility] Records Lives with: Parents Smoking Status: Never Smoker Frequency of Alcohol Use: Occasional Hx Recreational Drug Use: No Drugs: None Hx Prescription Drug Abuse: No - Advance Directive Resuscitation Status: Full Code Family History Family History: Arthritis, CAD, CVA, DM, Hyperlipidemia, Hypertension, Malignancy, Thyroid Disfunction Parental Family History Reviewed: Yes Children Family History Reviewed: Yes Sibling(s) Family History Reviewed.: Yes Medication/Allergy Home Medications: Omeprazole 40 mg PO DAILY 06/05/16 Cyanocobalamin (Vitamin B-12) [Vitamin B-12] 1,000 mcg SL DAILY #30 tab.subl 06/07/16 Ferrous Sulfate [Iron] 325 mg PO TID #90 capsule.sa 06/07/16 Allergies/Adverse Reactions: No Known Allergies Allergy (Verified 04/30/19 12:23) Review of Systems Constitutional: ABSENT: chills, fever(s), headache(s), weight gain, weight loss Eyes: ABSENT: visual disturbances Ears: ABSENT: hearing changes Cardiovascular: ABSENT: chest pain, dyspnea on exertion, edema, orthropnea, palpitations Respiratory: ABSENT: cough, hemoptysis Gastrointestinal: ABSENT: abdominal pain, constipation, diarrhea, hematemesis, hematochezia, nausea, vomiting Genitourinary: ABSENT: dysuria, hematuria Musculoskeletal: ABSENT: joint swelling Integumentary: ABSENT: rash, wounds Neurological: ABSENT: abnormal gait, abnormal speech, confusion, dizziness, focal weakness, syncope Psychiatric: ABSENT: anxiety, depression, homidical ideation, suicidal ideation Endocrine: ABSENT: cold intolerance, heat intolerance, polydipsia, polyuria Hematologic/Lymphatic: ABSENT: easy bleeding, easy bruising Physical Exam Vital Signs: Temp Pulse Resp BP Pulse Ox 99.3 F 98 22 H 162/83 H 96 05/01/19 03:46 05/01/19 03:46 05/01/19 03:46 05/01/19 03:46 05/01/19 03:46 Intake & Output 04/29/19 04/30/19 05/01/19 11:59 11:59 11:59 Intake Total 1400 Balance 1400 Weight 136.078 kg General appearance: PRESENT: cooperative, mild distress, obese, well-developed, well-nourished Head exam: PRESENT: atraumatic, normocephalic Eye exam: PRESENT: conjunctiva pink, EOMI, PERRLA. ABSENT: scleral icterus Ear exam: PRESENT: normal external ear exam Mouth exam: PRESENT: moist, tongue midline Neck exam: ABSENT: carotid bruit, JVD, lymphadenopathy, thyromegaly Respiratory exam: PRESENT: accessory muscle use, crackles, retraction, rhonchi, tachypnea. ABSENT: rales, wheezes Cardiovascular exam: PRESENT: RRR. ABSENT: diastolic murmur, rubs, systolic murmur Pulses: PRESENT: normal dorsalis pedis pul Vascular exam: PRESENT: normal capillary refill GI/Abdominal exam: PRESENT: normal bowel sounds, soft. ABSENT: distended, guarding, mass, organolmegaly, rebound, tenderness Rectal exam: PRESENT: deferred Extremities exam: PRESENT: full ROM. ABSENT: calf tenderness, clubbing, pedal edema Neurological exam: PRESENT: alert, awake, oriented to person, oriented to place, oriented to time, oriented to situation, CN II-XII grossly intact. ABSENT: motor sensory deficit Psychiatric exam: PRESENT: appropriate affect, normal mood. ABSENT: homicidal ideation, suicidal ideation Skin exam: PRESENT: dry, intact, warm. ABSENT: cyanosis, rash Results Laboratory Results: 04/30/19 13:13 04/30/19 13:13 04/30/19 04/30/19 04/30/19 13:13 13:13 13:13 WBC 7.5 RBC 4.70 Hgb 8.8 L Hct 29.2 L MCV 62 L D MCH 18.7 L MCHC 30.1 L RDW 35.3 H Plt Count 333 Seg Neutrophils % 73.6 Lymphocytes % 12.9 L Monocytes % 12.0 Eosinophils % 1.0 Basophils % 0.5 Absolute Neutrophils 5.6 Absolute Lymphocytes 1.0 Absolute Monocytes 0.9 Absolute Eosinophils 0.1 Absolute Basophils 0.0 Retic Count (auto) Absolute Retic Carbonic Acid HCO3/H2CO3 Ratio ABG pH ABG pCO2 ABG pO2 ABG HCO3 ABG O2 Saturation ABG Base Excess FiO2 Sodium 140.4 Potassium 4.3 Chloride 100 Carbon Dioxide 30 Anion Gap 10 BUN 13 Creatinine 0.67 Est GFR ( Amer) > 60 Est GFR (Non-Af Amer) > 60 Glucose 112 H Calcium 9.4 Iron TIBC % Saturation Ferritin Total Bilirubin 0.7 AST 13 L ALT 21 Alkaline Phosphatase 66 Total Protein 7.8 Albumin 4.1 Lipase 48.7 Vitamin B12 Folate Urine Color ELADIA Urine Appearance SLIGHTLY-CLOUDY Urine pH 6.0 Ur Specific Garrett 1.032 Urine Protein 100 H Urine Glucose (UA) NEGATIVE Urine Ketones NEGATIVE Urine Blood NEGATIVE Urine Nitrite NEGATIVE Ur Leukocyte Esterase NEGATIVE Urine WBC (Auto) 2 Urine RBC (Auto) 1 04/30/19 04/30/19 04/30/19 13:13 13:13 21:47 WBC RBC Hgb Hct MCV MCH MCHC RDW Plt Count Seg Neutrophils % Lymphocytes % Monocytes % Eosinophils % Basophils % Absolute Neutrophils Absolute Lymphocytes Absolute Monocytes Absolute Eosinophils Absolute Basophils Retic Count (auto) 2.17 Absolute Retic 0.102 Carbonic Acid 1.12 HCO3/H2CO3 Ratio 22:1 ABG pH 7.45 ABG pCO2 37.1 ABG pO2 69.8 L ABG HCO3 25.0 H ABG O2 Saturation 94.8 ABG Base Excess 1.0 FiO2 ROOM AIR Sodium Potassium Chloride Carbon Dioxide Anion Gap BUN Creatinine Est GFR ( Amer) Est GFR (Non-Af Amer) Glucose Calcium Iron 11.9 L TIBC 411 % Saturation 3 Ferritin 12.70 L Total Bilirubin AST ALT Alkaline Phosphatase Total Protein Albumin Lipase Vitamin B12 229.0 L Folate 11.70 Urine Color Urine Appearance Urine pH Ur Specific Garrett Urine Protein Urine Glucose (UA) Urine Ketones Urine Blood Urine Nitrite Ur Leukocyte Esterase Urine WBC (Auto) Urine RBC (Auto) Impressions: Chest X-Ray 04/30/19 12:48 IMPRESSION: Minimal bibasilar atelectasis Large retrocardiac hiatal hernia containing nearly the entire stomach Stable cardiomegaly Chest/Abdomen CTA 04/30/19 14:48 IMPRESSION: There is no evidence of pulmonary embolus. There is no aortic aneurysm or dissection. Right pleural effusion. Cannot exclude right lower lobe pneumonia. Hiatal hernia. Abdomen Ultrasound 04/30/19 14:49 IMPRESSION: NORMAL RIGHT UPPER QUADRANT ULTRASOUND. Assessment and Plan - Diagnosis (1) Pneumonia Is this a current diagnosis for this admission?: Yes Plan: Complicated by recent hospitalization, small pleural effusion, splinting, pneumonia care set deployed, incentive spirometry initiated, follow-up CBC and blood culture (2) History of pulmonary embolism Is this a current diagnosis for this admission?: Yes Plan: IVC filter in place, though patient was instructed to begin Xarelto 3 days ago. Will resume at 10 mg/day titration to 20 if no bleeding (3) Anemia Qualifiers: Anemia type: iron deficiency Iron deficiency anemia type: other iron deficiency Qualified Code(s): D50.8 - Other iron deficiency anemias Is this a current diagnosis for this admission?: Yes Plan: Status post GI hemorrhage, work-up reveals both iron and B12 deficiency. Both ordered. Follow-up CBC - Time Time Spent with patient: 25-34 minutes - Inpatient Certification Medical Necessity: Need Close Monitoring Due to Risk of Patient Decompensation
[2019-05-01] MEDS ORDERED: IRON SUCROSE COMPLEX INJ/PF 100 MG/5 ML SDV IV ONE (04:30)
[2019-05-01 05:44] LABS: ABSOLUTE LYMPHOCYTES (AUTO) 1.1 10^3/uL (0.5-4.7); ABSOLUTE MONOCYTES (AUTO) 1.2 10^3/uL (0.1-1.4); ABSOLUTE NEUT (AUTO) 5.5 10^3/uL (1.7-8.2); BASOPHILS % (AUTO) 0.4 % (0-2); EOSINOPHILS % (AUTO) 0.1 % (0-6); HEMATOCRIT 25.9 % (37.9-51.0); HEMOGLOBIN 8.1 g/dL (13.5-17.0); LYMPHOCYTES % (AUTO) 14.4 % (13-45); MEAN CORPUSCULAR HEMOGLOBIN 19.2 pg (27.0-33.4); MEAN CORPUSCULAR HGB CONC 31.1 g/dL (32.0-36.0); MEAN CORPUSCULAR VOLUME 62 fl (80-97); PLATELET COUNT 308 10^3/uL (150-450); RED BLOOD COUNT 4.21 10^6/uL (4.35-5.55); RED CELL DISTRIBUTION WIDTH 35.8 % (11.5-14.0); SEGMENTED NEUTROPHILS % (AUTO) 70.1 % (42-78); TOTAL CELLS COUNTED % (AUTO) 100 %; WHITE BLOOD COUNT 7.9 10^3/uL (4.0-10.5)
[2019-05-01] MEDS ORDERED: CHLORPHENIRAMINE MALEATE 4 MG TABLET ONE (05:53)
[2019-05-01 05:54] LABS: ANION GAP 13 (5-19); BLOOD UREA NITROGEN 13 mg/dL (7-20); CALCIUM 9.1 mg/dL (8.4-10.2); CARBON DIOXIDE 25 mmol/L (22-30); CHLORIDE 101 mmol/L (98-107); GLUCOSE 109 mg/dL (75-110); POTASSIUM 4.2 mmol/L (3.6-5.0); SODIUM 138.8 mmol/L (137-145)
[2019-05-01] MEDS ORDERED: HEPARIN SOD (PORCINE) 5,000 UNIT/ML 1 ML SYRINGE SUBCUT SCH (06:00)
[2019-05-01] MEDS: CHLORPHENIRAMINE MALEATE 4 MG TABLET PO SCH ×3 (06:00→18:19)
[2019-05-01 07:04] LABS: ANISOCYTOSIS 4+; HYPOCHROMASIA 2+; PLATELET COMMENT ADEQUATE
[2019-05-01] MEDS: IPRATROPIUM/ALBUTEROL 0.5-2.5 MG/3 ML AMPUL NEB SCH ×2 (08:00→16:37)
[2019-05-01] MEDS: FLUTICASONE NASAL SPRAY 50 MCG/SPRY 120 SPRAY/16 GM NASL SCH ×2 (10:57→21:30)
[2019-05-01] MEDS: CYANOCOBALAMIN (VITAMIN B-12) INJ 1000 MCG/1 ML VIAL IM SCH (10:57)
[2019-05-01] MEDS: VANCOMYCIN HCL 1,500 MG in DEXTROSE 5%-WATER 250 ML IV SCH ×3 (10:58→21:30)
--- NOTE | 2019-05-01 14:26 | PDOC PROGRESS REPORT ---
Subjective Progress Note for:: 05/01/19 Subjective:: This is a 43 year old male with a past medical history of developmental delay with speech impediment, B12 and iron deficiency anemia, followed by extensive lower extremity DVT and PE, on Xarelto, recent lower GI bleed status post embolization 10 days ago was brought in due to shortness of breath, fever and cough. CTA of the chest was negative for PE but did show a small right pleural effusion and possible pneumonia. He is admitted for H CAP. No acute event overnight. This morning, he appears comfortable on nasal cannula. He says that his shortness of breath has slightly improved. Denies chest pain. No hematemesis, abdominal pain, melena or hematochezia. Reason For Visit: ANEMIA PNEUMONIA Physical Exam Vital Signs: Temp Pulse Resp BP Pulse Ox 99.3 F 98 16 162/85 H 94 05/01/19 11:45 05/01/19 11:45 05/01/19 11:45 05/01/19 11:45 05/01/19 11:45 Intake & Output 04/30/19 05/01/19 05/02/19 06:59 06:59 06:59 Intake Total 1400 250 Balance 1400 250 Weight 296 lb 8.348 oz General appearance: PRESENT: no acute distress, well-developed, well-nourished Head exam: PRESENT: atraumatic, normocephalic Eye exam: PRESENT: conjunctiva pink, EOMI, PERRLA. ABSENT: scleral icterus Ear exam: PRESENT: normal external ear exam Mouth exam: PRESENT: moist, tongue midline Neck exam: ABSENT: carotid bruit, JVD, lymphadenopathy, thyromegaly Respiratory exam: PRESENT: clear to auscultation tracy. ABSENT: rales, rhonchi, wheezes Cardiovascular exam: PRESENT: RRR. ABSENT: diastolic murmur, rubs, systolic murmur Pulses: PRESENT: normal dorsalis pedis pul GI/Abdominal exam: PRESENT: normal bowel sounds, soft. ABSENT: distended, guarding, mass, organolmegaly, rebound, tenderness Rectal exam: PRESENT: deferred Neurological exam: PRESENT: alert, awake, oriented to person, oriented to place, CN II-XII grossly intact. ABSENT: motor sensory deficit Results Laboratory Results: 05/01/19 04:46 05/01/19 04:46 04/30/19 04/30/19 04/30/19 13:13 13:13 21:47 WBC RBC Hgb Hct MCV MCH MCHC RDW Plt Count Seg Neutrophils % Lymphocytes % Monocytes % Eosinophils % Basophils % Absolute Neutrophils Absolute Lymphocytes Absolute Monocytes Absolute Eosinophils Absolute Basophils Retic Count (auto) 2.17 Absolute Retic 0.102 Carbonic Acid 1.12 HCO3/H2CO3 Ratio 22:1 ABG pH 7.45 ABG pCO2 37.1 ABG pO2 69.8 L ABG HCO3 25.0 H ABG O2 Saturation 94.8 ABG Base Excess 1.0 FiO2 ROOM AIR Sodium Potassium Chloride Carbon Dioxide Anion Gap BUN Creatinine Est GFR ( Amer) Est GFR (Non-Af Amer) Glucose Calcium Iron 11.9 L TIBC 411 % Saturation 3 Ferritin 12.70 L Vitamin B12 229.0 L Folate 11.70 05/01/19 05/01/19 04:46 04:46 WBC 7.9 RBC 4.21 L Hgb 8.1 L Hct 25.9 L MCV 62 L MCH 19.2 L MCHC 31.1 L RDW 35.8 H Plt Count 308 Seg Neutrophils % 70.1 Lymphocytes % 14.4 Monocytes % 15.0 H Eosinophils % 0.1 Basophils % 0.4 Absolute Neutrophils 5.5 Absolute Lymphocytes 1.1 Absolute Monocytes 1.2 Absolute Eosinophils 0.0 Absolute Basophils 0.0 Retic Count (auto) Absolute Retic Carbonic Acid HCO3/H2CO3 Ratio ABG pH ABG pCO2 ABG pO2 ABG HCO3 ABG O2 Saturation ABG Base Excess FiO2 Sodium 138.8 Potassium 4.2 Chloride 101 Carbon Dioxide 25 Anion Gap 13 BUN 13 Creatinine 0.64 Est GFR ( Amer) > 60 Est GFR (Non-Af Amer) > 60 Glucose 109 Calcium 9.1 Iron TIBC % Saturation Ferritin Vitamin B12 Folate Impressions: Chest X-Ray 04/30/19 12:48 IMPRESSION: Minimal bibasilar atelectasis Large retrocardiac hiatal hernia containing nearly the entire stomach Stable cardiomegaly Chest/Abdomen CTA 04/30/19 14:48 IMPRESSION: There is no evidence of pulmonary embolus. There is no aortic aneurysm or dissection. Right pleural effusion. Cannot exclude right lower lobe pneumonia. Hiatal hernia. Abdomen Ultrasound 04/30/19 14:49 IMPRESSION: NORMAL RIGHT UPPER QUADRANT ULTRASOUND. Assessment and Plan - Diagnosis (1) HCAP (healthcare-associated pneumonia) Is this a current diagnosis for this admission?: Yes Plan: Continue IV antibiotics. Will order for sputum culture. Breathing treatments as needed. (2) Anemia Qualifiers: Anemia type: iron deficiency Iron deficiency anemia type: other iron deficiency Qualified Code(s): D50.8 - Other iron deficiency anemias Is this a current diagnosis for this admission?: Yes Plan: Secondary to iron, B12 deficiency and recent GI bleed. He had a recent small intestinal bleed resolved with embolization at [facility] 10 days ago. Hemoglobin is stable. No clinical signs of bleeding. (3) History of DVT (deep vein thrombosis) Is this a current diagnosis for this admission?: Yes Plan: On Xarelto. (4) History of pulmonary embolism Is this a current diagnosis for this admission?: Yes Plan: S/P IVC filter. On Xarelto. - Time Time Spent with patient: 25-34 minutes
[2019-05-01] MEDS: RIVAROXABAN 10 MG TABLET PO SCH (17:05)
[2019-05-01] MEDS: LEVOFLOXACIN 750 MG/D5W RTU 750 MG/150 ML RTUPB IV SCH (18:19)
[2019-05-01 22:06] LABS: VANCOMYCIN,TROUGH 6.6 ug/mL (5.0-20.0)
[2019-05-02] MEDS: IPRATROPIUM/ALBUTEROL 0.5-2.5 MG/3 ML AMPUL NEB SCH ×4 (00:05→23:48)
[2019-05-02] MEDS: VANCOMYCIN HCL 1,500 MG in DEXTROSE 5%-WATER 250 ML IV SCH (05:49)
[2019-05-02] MEDS: FLUTICASONE NASAL SPRAY 50 MCG/SPRY 120 SPRAY/16 GM NASL SCH ×2 (10:01→21:29)
[2019-05-02] MEDS: CYANOCOBALAMIN (VITAMIN B-12) INJ 1000 MCG/1 ML VIAL IM SCH (10:02)
--- NOTE | 2019-05-02 11:39 | PDOC PROGRESS REPORT ---
Subjective Progress Note for:: 05/02/19 Subjective:: This is a 43 year old male with a past medical history of developmental delay with speech impediment, B12 and iron deficiency anemia, followed by extensive lower extremity DVT and PE, on Xarelto, recent lower GI bleed status post embolization 10 days ago was brought in due to shortness of breath, fever and cough. CTA of the chest was negative for PE but did show a small right pleural effusion and possible pneumonia. He is admitted for H CAP. This morning, he appears comfortable on nasal cannula. He says that his shortness of breath has slightly improved. Denies chest pain. No hematemesis, abdominal pain, melena or hematochezia. 05/02: No acute event overnight. He saturating well on nasal cannula. He says he feels much better today any shortness of breath is significantly improved. We will try to wean off O2 today. Sputum culture pending. Anticipating discharge in the next 24 hours. Reason For Visit: ANEMIA PNEUMONIA Physical Exam Vital Signs: Temp Pulse Resp BP Pulse Ox 98.9 F 101 H 18 153/86 H 93 05/02/19 07:47 05/02/19 09:10 05/02/19 09:10 05/02/19 07:47 05/02/19 09:10 Intake & Output 05/01/19 05/02/19 05/03/19 06:59 06:59 06:59 Intake Total 1400 1500 250 Output Total 500 Balance 1400 1000 250 Weight 296 lb 8.348 oz 295 lb 13.765 oz General appearance: PRESENT: no acute distress, well-developed, well-nourished Head exam: PRESENT: atraumatic, normocephalic Eye exam: PRESENT: conjunctiva pink, EOMI, PERRLA. ABSENT: scleral icterus Ear exam: PRESENT: normal external ear exam Mouth exam: PRESENT: moist, tongue midline Neck exam: ABSENT: carotid bruit, JVD, lymphadenopathy, thyromegaly Respiratory exam: PRESENT: rhonchi. ABSENT: wheezes Cardiovascular exam: PRESENT: RRR. ABSENT: diastolic murmur, rubs, systolic murmur Pulses: PRESENT: normal dorsalis pedis pul GI/Abdominal exam: PRESENT: normal bowel sounds, soft. ABSENT: distended, guar ding, mass, organolmegaly, rebound, tenderness Rectal exam: PRESENT: deferred Extremities exam: PRESENT: full ROM. ABSENT: calf tenderness, clubbing, pedal edema Neurological exam: PRESENT: alert, awake, oriented to person, oriented to place, oriented to time, oriented to situation, CN II-XII grossly intact. ABSENT: motor sensory deficit Results Laboratory Results: 05/01/19 04:46 05/01/19 21:27 05/01/19 21:27 Creatinine 0.71 Est GFR ( Amer) > 60 Est GFR (Non-Af Amer) > 60 Impressions: Chest X-Ray 04/30/19 12:48 IMPRESSION: Minimal bibasilar atelectasis Large retrocardiac hiatal hernia containing nearly the entire stomach Stable cardiomegaly Chest/Abdomen CTA 04/30/19 14:48 IMPRESSION: There is no evidence of pulmonary embolus. There is no aortic aneurysm or dissection. Right pleural effusion. Cannot exclude right lower lobe pneumonia. Hiatal hernia. Abdomen Ultrasound 04/30/19 14:49 IMPRESSION: NORMAL RIGHT UPPER QUADRANT ULTRASOUND. Assessment and Plan - Diagnosis (1) HCAP (healthcare-associated pneumonia) Is this a current diagnosis for this admission?: Yes Plan: Continue IV antibiotics. Sputum culture pending. Breathing treatments as needed. (2) Anemia Qualifiers: Anemia type: iron deficiency Iron deficiency anemia type: other iron deficiency Qualified Code(s): D50.8 - Other iron deficiency anemias Is this a current diagnosis for this admission?: Yes Plan: Secondary to iron, B12 deficiency and recent GI bleed. He had a recent small intestinal bleed resolved with embolization at [facility] 10 days ago. Hemoglobin is stable. No clinical signs of bleeding. (3) History of DVT (deep vein thrombosis) Is this a current diagnosis for this admission?: Yes Plan: On Xarelto. (4) History of pulmonary embolism Is this a current diagnosis for this admission?: Yes Plan: S/P IVC filter. On Xarelto. - Time Time Spent with patient: 25-34 minutes
[2019-05-02] MEDS: HYDRALAZINE HCL INJ/PF 20 MG/1 ML SDV IV PRN (12:49)
[2019-05-02] MEDS: VANCOMYCIN HCL 2,000 MG in DEXTROSE 5%-WATER 500 ML IV SCH ×2 (14:03→21:30)
[2019-05-02] MEDS: RIVAROXABAN 10 MG TABLET PO SCH (16:24)
[2019-05-02] MEDS: ACETAMINOPHEN 325 MG TABLET PO PRN (16:24)
[2019-05-02] MEDS: LEVOFLOXACIN 750 MG/D5W RTU 750 MG/150 ML RTUPB IV SCH (17:30)
[2019-05-03] MEDS: VANCOMYCIN HCL 2,000 MG in DEXTROSE 5%-WATER 500 ML IV SCH (06:35)
[2019-05-03] MEDS: IPRATROPIUM/ALBUTEROL 0.5-2.5 MG/3 ML AMPUL NEB SCH (07:38)
[2019-05-03 08:27] VITALS: BP 159/85
[2019-05-03] MEDS: FLUTICASONE NASAL SPRAY 50 MCG/SPRY 120 SPRAY/16 GM NASL SCH (09:19)
[2019-05-03] MEDS: CYANOCOBALAMIN (VITAMIN B-12) INJ 1000 MCG/1 ML VIAL IM SCH (09:19)
--- NOTE | 2019-05-03 09:55 | RADIOLOGY REPORT (SQ) ---
EXAM DESCRIPTION: CHEST SINGLE VIEW COMPLETED DATE/TIME: 05/03/2019 9:36 am REASON FOR STUDY: pna COMPARISON: CT angio chest 04/30/2019 Two-view chest 04/30/2019, 04/22/2019 EXAM PARAMETERS: NUMBER OF VIEWS: One view. TECHNIQUE: Single frontal radiographic view of the chest acquired. RADIATION DOSE: NA LIMITATIONS: None. FINDINGS: LUNGS AND PLEURA: Trace right pleural fluid blunts the lateral costophrenic sulcus. There is minimal right and left basilar airspace disease atelectasis versus pneumonia. No pneumothorax. MEDIASTINUM AND HILAR STRUCTURES: No masses. Contour normal. HEART AND VASCULAR STRUCTURES: Stable cardiomegaly BONES: No acute findings. HARDWARE: None in the chest. OTHER: No other significant finding. IMPRESSION: No change compared to plain films 04/30/2019 TECHNICAL DOCUMENTATION: JOB ID: [id number] [employer]- All Rights Reserved Reading location - IP/workstation name: [email or web address]
--- NOTE | 2019-05-03 18:10 | PDOC DISCHARGE SUMMARY ---
General - Admit/Disc Date/PCP Admission Date/Primary Care Provider: 04/30/19 22:36 ELIUD DAVID MD Discharge Date: 05/03/19 - Discharge Diagnosis (1) HCAP (healthcare-associated pneumonia) Is this a current diagnosis for this admission?: Yes (2) Anemia Is this a current diagnosis for this admission?: Yes (3) History of DVT (deep vein thrombosis) Is this a current diagnosis for this admission?: Yes (4) History of pulmonary embolism Is this a current diagnosis for this admission?: Yes - Additional Information Resuscitation Status: Full Code Discharge Diet: Cardiac Discharge Activity: Activity As Tolerated, Balance Activity w/Rest Prescriptions: Furosemide [Lasix 20 mg Tablet] 20 mg PO QAM 5 Days #5 tablet Levofloxacin [Levaquin 750 mg Tablet] 750 mg PO DAILY 5 Days #5 tablet Home Medications: Omeprazole 40 mg PO QAM 05/01/19 Rivaroxaban [Xarelto] 20 mg PO QPM 05/01/19 Furosemide [Lasix 20 mg Tablet] 20 mg PO QAM 5 Days #5 tablet 05/03/19 Levofloxacin [Levaquin 750 mg Tablet] 750 mg PO DAILY 5 Days #5 tablet 05/03/19 History of Present Illness History of Present Illness: Admitting hospitalist's H&P: LANCE PRIETO JR is a 43 year old male with a past medical history of de velopmental delay with speech impediment, both B12 and iron deficient anemia, followed by extensive lower extremity DVT and PE, S/P IVC filter placement, on Xarelto, recent lower GI bleed status post embolization 10 days ago. Patient was discharged from [facility] for GI bleed and been doing well until 3 days ago developing shortness of breath nonproductive cough subjective fever prompting evaluation emergency room where he is found to have a right-sided infiltrate with small pleural effusion, hemoglobin of 8.8 from 7.5, 10 days ago. Hospital Course Hospital Course: This is a 43 year old male with a past medical history of developmental delay with speech impediment, B12 and iron deficiency anemia, followed by extensive lower extremity DVT and PE, S/P IVC filter placement, on Xarelto, recent lower GI bleed status post embolization 10 days ago was brought in due to shortness of breath, fever and cough. CTA of the chest was negative for PE but did show a small right pleural effusion and possible right sided pneumonia. He was admitted for HCAP. He was started on IV antibiotics. He was initially on 2 L nasal cannula. He did significantly improve. He was eventually weaned off O2. He ambulated on the hallway on room air without any issue or desaturation. He will be discharged on p.o. levofloxacin and will closely follow-up with PCP. Physical Exam Vital Signs: Temp Pulse Resp BP Pulse Ox 98.5 F 98 18 159/85 H 94 05/03/19 11:42 05/03/19 11:42 05/03/19 11:42 05/03/19 07:13 05/03/19 11:42 Intake & Output 05/02/19 05/03/19 05/04/19 06:59 06:59 06:59 Intake Total 1500 2331 500 Output Total 500 400 Balance 1000 1931 500 Weight 295 lb 13.765 oz 296 lb 1.293 oz General appearance: PRESENT: no acute distress, well-developed, well-nourished Head exam: PRESENT: atraumatic, normocephalic Eye exam: PRESENT: conjunctiva pink, EOMI, PERRLA. ABSENT: scleral icterus Ear exam: PRESENT: normal external ear exam Mouth exam: PRESENT: moist, tongue midline Neck exam: ABSENT: carotid bruit, JVD, lymphadenopathy, thyromegaly Respiratory exam: PRESENT: rhonchi. ABSENT: rales, wheezes Cardiovascular exam: PRESENT: RRR. ABSENT: diastolic murmur, rubs, systolic murmur Pulses: PRESENT: normal dorsalis pedis pul GI/Abdominal exam: PRESENT: normal bowel sounds, soft. ABSENT: distended, guarding, mass, organolmegaly, rebound, tenderness Rectal exam: PRESENT: deferred Extremities exam: PRESENT: full ROM. ABSENT: calf tenderness, clubbing, pedal edema Neurological exam: PRESENT: alert, awake, oriented to person, oriented to place, oriented to time, oriented to situation, CN II-XII grossly intact. ABSENT: motor sensory deficit Results Laboratory Results: 05/01/19 04:46 05/01/19 21:27 05/01/19 14:25 Sputum Gram Stain - Final 05/01/19 14:25 Sputum Sputum Culture - Final Impressions: Chest/Abdomen CTA 04/30/19 14:48 IMPRESSION: There is no evidence of pulmonary embolus. There is no aortic aneurysm or dissection. Right pleural effusion. Cannot exclude right lower lobe pneumonia. Hiatal hernia. Abdomen Ultrasound 04/30/19 14:49 IMPRESSION: NORMAL RIGHT UPPER QUADRANT ULTRASOUND. Chest X-Ray 05/03/19 00:00 IMPRESSION: No change compared to plain films 04/30/2019 Qualifiers - * PATIENT BEING DISCHARGED WITH ANY OF THE FOLLOWING DIAGNOSIS: No Acute Heart Failure - Is this a Heart Failure Patient?: No LVEF < 40%?: No- if no continue to question #3 3. Anticoagulant therapy for permanect/persistent/paraoxysmal Afib or Aflutter: N/A
== END 2019-05-03 12:50 | disposition home or self-care (01) | DRG 195 ==
LOC: ER 12:17 → OBSVTOIN 22:36 → EH 22:36 → 3W 05-01 00:20
PROVIDERS: ADMIT Internal Medicine; ATTEND Internal Medicine
DX: J18.9 Pneumonia, unspecified organism (principal); K44.9 Diaphragmatic hernia without obstruction or gangrene; E53.8 Deficiency of other specified B group vitamins; E56.8 Deficiency of other vitamins; D50.8 Other iron deficiency anemias; E78.5 Hyperlipidemia, unspecified; I10 Essential (primary) hypertension; E66.9 Obesity, unspecified; E78.00 Pure hypercholesterolemia, unspecified; Z86.718 Personal history of other venous thrombosis and embolism; Z86.711 Personal history of pulmonary embolism; Z79.01 Long term (current) use of anticoagulants; Z79.899 Other long term (current) drug therapy; Z95.820 Peripheral vascular angioplasty status with implants and grafts; Z82.49 Family history of ischemic heart disease and other diseases of the circulatory system; Z82.3 Family history of stroke; Z82.61 Family history of arthritis
CPT/HCPCS: 36415; 71045; 71046; 71275; 76705; 80048; 80053; 80202; 81001; 82565; 82607; 82728; 82746; 82803; 83540; 83550; 83690; 85025; 85045; 85610; 85730; 87040; 87070; 87205; 94667; 94668; 94799; 96361; 96365; 96366; 96375; 99285; G0378; J0360; J1756; J1956; J3010; J3370; J3420; J3490; J7030; J7060; J7620

== ENCOUNTER 2019-12-18 10:44 | Emergency (ER) | payer MEDICARE, MEDICAID ==
[2019-12-18] MEDS ORDERED: NORMAL SALINE 250 ML IV PRN (10:50)
--- NOTE | 2019-12-18 11:27 | ER Document Report ---
ED General - General Stated Complaint: ABNORMAL LAB WORK Primary Care Provider: ELIUD DAVID MD [Primary Care Provider] - Follow up as needed Notes: 44-year-old male with a history of extensive DVT PE IVC filter and on Xarelto also history of GI bleed last year transfer to [facility] had embolization of the /intestinal AVM presenting with fatigue and weakness and skin color cell changer a few week.. [facility] checked all labs found to have hemoglobin of 4.2. They felt he was jaundiced but his LFTs are normal and this is more likely to be pallor. He denies lori blood per rectum dark stools but has felt dizziness and shortness of breath and his notices skin color change. Continues to be on Xarelto. Has been to [facility] for embolization in the past. Also followed by Sherley Tapia and takes iron for B12/iron deficiency. TRAVEL OUTSIDE OF THE [place] IN LAST 30 DAYS: No - Related Data Allergies/Adverse Reactions: No Known Allergies Allergy (Verified 04/30/19 12:23) Past Medical History - Social History Smoking Status: Never Smoker Family History: Arthritis, CAD, CVA, DM, Hyperlipidemia, Hypertension, Malignancy, Thyroid Disfunction - Past Medical History Cardiac Medical History: Reports: Hx Hypercholesterolemia, Hx Hypertension, Hx Pulmonary Embolism Denies: Hx Coronary Artery Disease, Hx Heart Attack Pulmonary Medical History: Denies: Hx Asthma, Hx Bronchitis, Hx COPD, Hx Pneumonia Neurological Medical History: Denies: Hx Cerebrovascular Accident, Hx Seizures Renal/ Medical History: Denies: Hx Peritoneal Dialysis GI Medical History: Reports: Hx Ulcer Musculoskeletal Medical History: Denies Hx Arthritis Psychiatric Medical History: Denies: Hx Depression Past Surgical History: Reports: Hx Myringotomy - Immunizations Immunizations up to date: Yes Hx Diphtheria, Pertussis, Tetanus Vaccination: Yes Review of Systems - Review of Systems Notes: REVIEW OF SYSTEMS GEN: Denies fever, chills, weight loss ENT: Denies sore throat, nasal discharge, ear pain EYES: Denies blurry vision, eye pain, discharge CV: Denies chest pain, palpitations, edema RESP: Denies cough, shortness of breath, wheezing GI: Denies abdominal pain, nausea, vomiting, diarrhea MSK: Denies joint pain/swelling, edema, SKIN: Denies rash, skin lesions LYMPH: Denies swollen glands/lymph nodes NEURO: Denies headache, focal weakness or numbness, dizziness PSYCH: Denies depression, suicidal or homicidal ideation PHYSICAL EXAMINATION General: No acute distress, well-nourished Head: Atraumatic, normocephalic ENT: Mouth normal, oropharynx moist, no exudates or tonsillar enlargement Eyes: Conjunctiva normal, pupils equal, lids normal Neck: No JVD, supple, no guarding CVS: Normal rate, regular rhythm, no murmurs Resp: No resp distress, equal and normal breath sounds bilaterally GI: Nondistended, soft, no tenderness to palpation, no rebound or guarding Ext: No deformities, no edema, normal range of motion in upper and lower ext Back: No CVA or midline TTP Skin: No rash, warm Lymphatic: No lymphadeopathy noted Neuro: Awake, alert. Face symmetric. GCS 15. Physical Exam - Vital signs Vitals: Temp Pulse Resp BP Pulse Ox 97.9 F 103 H 16 160/76 H 100 12/18/19 10:48 12/18/19 10:48 12/18/19 10:48 12/18/19 10:48 12/18/19 10:48 Course - Re-evaluation Re-evalutation: 12/18/19 12:17 Mr. Jeronimo presents with incidental low hemoglobin which is happened in the past. His hemoglobin in the office was 4.2 12/18/19 12:37 Presents with symptomatic anemia history of same. On reviewing his [facility] records he had an endoscopy which showed AVM that was barely bleeding and was not thought to be the cause of his anemia. Thought to be B12/iron. Is not seen hematology since but is on iron supplementation. Here his hemoglobin is also low, vital signs are stable. Will transfuse him 2 unitsconsented Coags normal Brown stool that is occult blood negative. Attempted to admit here Dr. LUNDY he will not admit because she is concerned about a GI bleed even though I told her that the stool is brown and that is guaiac negative. Hematology is available here but given no GI transfer to [facility]. Discussed with Amanuel Blount at [facility] who accepted and agrees with the plan. - Vital Signs Vital signs: Temp Pulse Resp BP Pulse Ox 97.9 F 103 H 20 147/81 H 100 12/18/19 10:48 12/18/19 10:48 12/18/19 12:02 12/18/19 12:02 12/18/19 12:02 - Laboratory Result Diagrams: 12/18/19 11:44 12/18/19 11:15 Laboratory results interpreted by me: 12/18/19 12/18/19 12/18/19 11:15 11:15 11:15 WBC RBC Hgb Hct MCV MCH MCHC RDW PT 18.9 H Glucose 113 H Iron 43.6 L TIBC 465 H Ferritin 4.31 L Crossmatch See Detail 12/18/19 12/18/19 11:44 11:44 WBC 3.9 L RBC 3.19 L Hgb 4.5 L* Hct 16.5 L MCV 52 L MCH 14.0 L MCHC 27.0 L RDW 20.8 H PT Glucose Iron TIBC Ferritin Crossmatch See Detail Discharge - Discharge Clinical Impression: Symptomatic anemia Condition: Fair Disposition: [facility] Referrals: ELIUD DAVID MD [Primary Care Provider] - Follow up as needed
[2019-12-18 11:35] LABS: INTERNATIONAL RATION (INR) 1.57; PROTHROMBIN TIME 18.9 SEC (11.4-15.4)
[2019-12-18 11:46] LABS: ANION GAP 10 (5-19); BLOOD UREA NITROGEN 15 mg/dL (7-20); CALCIUM 8.9 mg/dL (8.4-10.2); CARBON DIOXIDE 25 mmol/L (22-30); CHLORIDE 105 mmol/L (98-107); GLUCOSE 113 mg/dL (75-110); IRON(TIBC) 43.6 ug/dL (49-181); POTASSIUM 4.7 mmol/L (3.6-5.0)
[2019-12-18 12:00] LABS: HEMATOCRIT 16.5 % (37.9-51.0); PLATELET COUNT 343 10^3/uL (150-450); RED BLOOD COUNT 3.19 10^6/uL (4.35-5.55); RED CELL DISTRIBUTION WIDTH 20.8 % (11.5-14.0); WHITE BLOOD COUNT 3.9 10^3/uL (4.0-10.5)
[2019-12-18 12:10] LABS: MEAN CORPUSCULAR VOLUME 52 fl (80-97)
[2019-12-18 12:13] LABS: HEMOGLOBIN 4.5 g/dL (13.5-17.0)
[2019-12-18 12:23] LABS: FERRITIN 4.31 ng/mL (17.9-464.0)
--- NOTE | 2019-12-18 14:00 | RADIOLOGY REPORT (SQ) ---
EXAM DESCRIPTION: CTA ABDOMEN/PELVIS W WO COMPLETED DATE/TIME: 12/18/2019 1:17 pm REASON FOR STUDY: gi bled, h/o AVM COMPARISON: None. TECHNIQUE: CT scan of the abdomen and pelvis performed with and without intravenous contrast. Images reviewed with lung, soft tissue, and bone windows. Reconstructed coronal and sagittal MPR images rev iewed. Delayed images for evaluation of possible gastrointestinal hemorrhage. All images stored on PA CS. All CT scanners at this facility use dose modulation, iterative reconstruction, and/or weight based d osing when appropriate to reduce radiation dose to as low as reasonably achievable (ALARA). [facility]: Dose Right [facility]: CareDose [facility]: Dose Right [facility]: Teradose 4D [facility]: Nefsis CONTRAST TYPE AND DOSE: contrast/concentration: Isovue 350.00 mg/ml; Total Contrast Delivered: 100.0 ml; Total Saline Delivered: 90.0 ml RENAL FUNCTION: GFR > 60. RADIATION DOSE: CT Rad equipment meets quality standard of care and radiation dose reduction techniq ues were employed. CTDIvol: 20.9 - 34.0 mGy. DLP: 3639 mGy-cm.. LIMITATIONS: None. FINDINGS: NON-CONTRASTED IMAGING: No significant renal or bladder calcifications. No other significa nt organ calcifications. POST-CONTRASTED IMAGING: LOWER CHEST: No significant findings. No nodules or infiltrates. LIVER: Normal size. No masses. No dilated ducts. SPLEEN: Normal size. No focal lesions. PANCREAS: No masses. No significant calcifications. No adjacent inflammation or peripancreatic fluid collections. Pancreatic duct not dilated. GALLBLADDER: No identified stones by CT criteria. No inflammatory changes to suggest cholecystitis. ADRENAL GLANDS: No significant masses or asymmetry. RIGHT KIDNEY AND URETER: No solid masses. No significant calcification. No hydronephrosis or hydroure ter. LEFT KIDNEY AND URETER: No solid masses. No significant calcification. No hydronephrosis or hydrouret er. AORTA AND VESSELS: No aneurysm. No dissection. Renal arteries, SMA, celiac without stenosis. IVC stoney ter in place. RETROPERITONEUM: No retroperitoneal adenopathy, hemorrhage or masses. BOWEL AND PERITONEAL CAVITY: No masses or inflammatory changes. No free fluid or peritoneal masses. N o active contrast extravasation into the bowel lumen or other findings of active gastrointestinal ble eding. APPENDIX: Normal. PELVIS: No mass. No free fluid. Normal bladder. ABDOMINAL WALL: No masses. No hernias. BONES: No significant or acute findings. OTHER: No other significant finding. IMPRESSION: NO SIGNIFICANT OR ACUTE ABNORMALITY IN THE ABDOMEN OR PELVIS. NO CT EVIDENCE OF ACTIVE G ASTROINTESTINAL HEMORRHAGE. TECHNICAL DOCUMENTATION: JOB ID: [id number] Quality ID # [id number]: Final reports with documentation of one or more dose reduction techniques (e.g., Au tomated exposure control, adjustment of the mA and/or kV according to patient size, use of iterative reconstruction technique) 2010 [employer]- All Rights Reserved Reading location - IP/workstation name: [email or web address]-
[2019-12-18 15:05] VITALS: BP 138/75
[2019-12-21 14:36] LABS: PATH REVIEW PATHOLOGIST REVIEWED
== END 2019-12-18 15:24 | disposition short-term general hospital (02) ==
LOC: ER 10:44
DX: D64.9 Anemia, unspecified (principal); R53.83 Other fatigue; R53.1 Weakness; R42 Dizziness and giddiness; I10 Essential (primary) hypertension; E61.1 Iron deficiency; E53.8 Deficiency of other specified B group vitamins; Z79.899 Other long term (current) drug therapy; Z79.01 Long term (current) use of anticoagulants; Z86.711 Personal history of pulmonary embolism; Z86.718 Personal history of other venous thrombosis and embolism
CPT/HCPCS: 86900; 86901; 36415; 36430; 86850; 82728; 83540; 83550; 85610; 80048; 86920; 74174; P9016; 99284